=== PATIENT | male | born 1985 | race Caucasian/White ===

== ENCOUNTER 2022-01-21 09:36 | Emergency (ER) | payer SELFPAY ==
[~2022-01-21] VITALS: Ht 175.3 cm; Wt 68.0 kg
[2022-01-21] MEDS ORDERED: IBUP-2029 MT (10:03)
[2022-01-21 10:12] VITALS: BP 120/68
[2022-01-21] MEDS: IBUPROFEN 600MG TABLET PO ONE (10:12)
== END 2022-01-21 10:30 | disposition home or self-care (01) ==
LOC: ER 09:36
DX: M79.661 Pain in right lower leg (principal); Z98.890 Other specified postprocedural states
CPT/HCPCS: 99283